=== PATIENT | male | born 1980 | race African-American/Black ===

== ENCOUNTER 2017-05-05 13:20 | Emergency (ER) | payer SELFPAY ==
[~2017-05-05] VITALS: Ht 185.4 cm; Wt 90.9 kg
[2017-05-05 13:22] VITALS: BP 130/76; PULSE 86; RESP 16; TEMP 98.6; O2SAT 98
--- NOTE | 2017-05-05 20:33 | PD ---
Physical Exam Date Seen by Provider: May 05, 2017 Time Seen by Provider: 14:02 Narrative 36 year old male presents to the emergency department for evaluation of low pack pain for 1 week, but worsened yesterday. He denies any injury. He reports associated muscle spasms. Current pain is 8/10. Data Data Last Documented VS Vital Signs Date Time Temp Pulse Resp B/P (MAP) Pulse Ox O2 Delivery O2 Flow Rate FiO2 05/05/17 14:02 05/05/17 13:22 98.6 86 16 98 MDM Supervised Visit with ERNESTINA: No Narrative Course 36 year old male presents to the emergency department for evaluation of low back pain. Patient was initially evaluated in triage. He left AMA before he could be placed in a medical bed. Diagnosis Primary Impression: Left against medical advice Additional Impression: Low back pain Qualified Codes: M54.5 - Low back pain Scripts No Active Prescriptions or Reported Meds Disposition: 07 AGAINST MEDICAL ADVICE Crys Damian May 05, 2017 20:33
== END 2017-05-05 14:16 | disposition left against medical advice (07) ==
LOC: NED 13:20
DX: M54.5 Low back pain (principal)
CPT/HCPCS: 99281